=== PATIENT | male | born 1960 | race Caucasian/White ===

== ENCOUNTER → 2018-03-14 13:26 | Outpatient (CLI) | payer MEDICARE, SELFPAY ==
[2018-03-14 13:44] LABS: Basophils # 0.1 K/mm3 (0-0.2); Basophils % 0.9 % (0.1-2.0); Eosinophils # 0.3 K/mm3 (0.0-0.4); Eosinophils % 3.5 % (0.1-12.0); Hematocrit 48.6 % (42.0-52.0); Lymphocytes # 2.3 K/mm3 (0.7-4.5); Lymphocytes % 24.3 % (10-50); Mean Corpuscular HGB Conc 32.9 g/dL (31.8-35.4); Mean Corpuscular Hemoglobin 31.8 pg (27.0-31.2); Mean Corpuscular Volume 96.8 fl (80-94); Mean Platelet Volume 8.9 fl (7.4-10.4); Monocytes # 0.6 K/mm3 (0.1-1.0); Monocytes % 5.9 % (1.7-9.3); Neutrophils # 6.2 K/mm3 (1.8-7.8); Neutrophils % 65.5 % (37.0-80.0); Platelet Count 237 K/mm3 (142-424); Red Blood Count 5.02 M/mm3 (4.60-6.20); Red Cell Distribution Width 13.6 % (11.5-17.5); White Blood Count 9.4 K/mm3 (4.8-10.8)
[2018-03-14 14:53] LABS: Alanine Aminotransferase 25 U/L (12-78); Albumin Level 3.7 gm/dL (3.4-5.0); Albumin/Globulin Ratio 0.9 (1.1-1.8); Alkaline Phosphatase 133 U/L (46-116); Anion Gap 13.3 mEq/L (5-15); Aspartate Amino Transferase 9 U/L (15-37); Bilirubin,Total 0.4 mg/dL (0.2-1.0); Blood Urea Nitrogen 15 mg/dL (7-18); Calcium 8.9 mg/dL (8.5-10.1); Carbon Dioxide 27 mmol/L (21.0-32.0); Chloride 102 mmol/L (98-107); Chol/HDL Ratio 8.8 (1-3.5); Cholesterol 238 mg/dL (140-200); Creatinine,Serum 0.86 mg/dL (0.70-1.30); Estimated Glomerular Filt Rate 92 ml/min (>60); GFR (African American) 112 ML/MIN (>60); Globulin 3.9 gm/dl (1.3-3.2); Glucose 209 mg/dL (74-106); HDL Cholesterol 27 mg/dL (27-67); Potassium 4.3 mmoL/L (3.5-5.1); Sodium 138 mmol/L (136-145); T4 (Thyroxine) 6.2 ug/dl (4.7-13.3); Thyroid Stimulating Hormone 1.49 uIU/ml (0.358-3.740); Total Protein,Serum 7.6 gm/dL (6.4-8.2)
[2018-03-14 14:54] LABS: Amphetamine/Metha Screen,Urine Negative ng/mL (<1000); Barbiturates Screen,Urine Negative ng/mL (<200); Benzodiazepines Screen,Urine Negative ng/mL (<200); Cannabinoid Screen,Urine Negative ng/mL (<50); Cocaine Screen,Urine Negative ng/mL (<300); Methadone Screen,Urine Negative ng/mL (<300); Opiate Screen,Urine Negative ng/mL (<300); Phencyclidine Screen,Urine Negative ng/mL (<25)
[2018-03-14 14:55] LABS: Triglycerides 482 mg/dL (30-200)
[2018-03-15 16:16] LABS: Vitamin B12 464 pg/mL (232-1245); Vitamin D 25 Hydroxy 15.3 ng/mL (30.0-100.0)
[2018-03-15 16:17] LABS: Folate 13.3 ng/mL (>3.0); PSA, Free 0.13 ng/mL; Prostate Specific Ag 0.4 ng/mL (0.0-4.0)
== END ==
PROVIDERS: Visit Provider Nurse Practitioner Family
DX: M54.16 Radiculopathy, lumbar region (principal); I10 Essential (primary) hypertension; Z76.89 Persons encountering health services in other specified circumstances; M25.50 Pain in unspecified joint
CPT/HCPCS: 80053; 80061; 80305; 82607; 82652; 82746; 84153; 84154; 84436; 84443; 85025

== ENCOUNTER → 2018-03-25 12:49 | Outpatient (CLI) | payer MEDICARE, SELFPAY | PROVIDERS: PCP Emergency Medicine; Visit Provider Nurse Practitioner Family | DX: M54.9 Dorsalgia, unspecified (principal); M54.5 Low back pain; M54.2 Cervicalgia ==

== ENCOUNTER → 2018-06-18 17:58 | Outpatient (CLI) | payer MEDICARE, SELFPAY ==
[2018-06-18 19:19] LABS: Amphetamine/Metha Screen,Urine Negative ng/mL (<1000); Barbiturates Screen,Urine Negative ng/mL (<200); Benzodiazepines Screen,Urine Negative ng/mL (<200); Cannabinoid Screen,Urine Negative ng/mL (<50); Cocaine Screen,Urine Negative ng/mL (<300); Methadone Screen,Urine Negative ng/mL (<300); Opiate Screen,Urine Negative ng/mL (<300); Phencyclidine Screen,Urine Negative ng/mL (<25)
[2018-06-23 18:24] LABS: Gabapentin,Urine 282.5 ug/mL (.)
== END ==
PROVIDERS: Visit Provider Nurse Practitioner Family
DX: M54.16 Radiculopathy, lumbar region (principal)
CPT/HCPCS: 80305; 80307

== ENCOUNTER → 2018-06-19 14:16 | Outpatient (CLI) | payer MEDICARE, SELFPAY ==
--- NOTE | 2018-06-19 14:27 | XR_ITS ---
EXAM: XR lumbar spine min 4V HISTORY: Low back pain, old fracture ITS.REASON: pain ORDERING PHYSICIAN: Candido Van MD PATIENT AGE: 57 years COMPARISON: None FINDINGS: There is normal alignment. Anterior bridging osteophytes are present from T10 to L1. There is 40% anterior wedge compression changes at L1 which appears old. Degenerative disc disease is present at L5-S1 with endplate osteophytes and loss of disc space. Facet arthritic changes are noted at L5-S1. No acute fracture or dislocation evident. No lytic or blastic change. Left-sided osteophyte is present at L3-L4 IMPRESSION: Lumbar spondylosis with osteophytosis and degenerative disc disease at L5-S1 Old compression fracture of L1 with mild kyphosis
--- NOTE | 2018-06-19 14:27 | XR_ITS ---
EXAM: XR cervical spine 2V HISTORY: ITS.REASON: pain ORDERING PHYSICIAN: Candido Van MD PATIENT AGE: 57 years COMPARISON: None FINDINGS: There is normal alignment. There are prominent anterior bridging osteophytes at C3 C4 C4 C5 C5 C6 and C6-C7. There is slight reversal of lordosis at C5-C6. No fracture or dislocation. No lytic or blastic change. Carotid calcifications noted on the right. IMPRESSION: No acute finding. Cervical spondylosis with prominent anterior bridging osteophytes consistent with DISH of the cervical spine
--- NOTE | 2018-06-19 14:27 | XR_ITS ---
EXAM: XR thoracic spine 3V HISTORY: Back pain ITS.REASON: pain Comparison: None FINDINGS: There is mild thoracic curvature convex right. Prominent bridging osteophytes are present at T6 , T7, and T8 with marginal osteophytes along the right and left aspect at T8-T9 and T10. No acute fracture or dislocation. No lytic changes evident. IMPRESSION: Thoracic spondylosis with prominent marginal osteophytes and degenerative disc disease, no acute finding
[2018-06-19 17:05] LABS: Erythrocyte Sedimentation Rate 19 mm/hr (0-20)
[2018-06-19 17:14] LABS: C-Reactive Protein 0.4 mg/L (0.0-0.9)
[2018-06-21 09:01] LABS: RA Latex Turbid. 10.7 IU/mL (0.0-13.9)
[2018-06-21 12:24] LABS: Anti-Centromere B Antibodies <0.2 AI (0.0-0.9); Anti-Jo-1 <0.2 AI (0.0-0.9); Anti-Smith Antibody <0.2 AI (0.0-0.9); Antichromatin Antibodies <0.2 AI (0.0-0.9); Antiscleroderma-70 Antibodies <0.2 AI (0.0-0.9); RNP Antibodies 0.3 AI (0.0-0.9); Sjogren's Anti-SS-A <0.2 AI (0.0-0.9); Sjogren's Anti-SS-B <0.2 AI (0.0-0.9)
[2018-06-21 19:57] LABS: Anti-DNA (DS) Ab Qn <1 IU/mL (0-9)
[2018-06-22 08:31] LABS: PTT-LA 37.3 sec (0.0-51.9); dRVVT 63.6 sec (0.0-47.0); dRVVT Mix 45.9 sec (0.0-47.0)
[2018-06-23 18:25] LABS: Lupus Reflex Interpretation Comment: (.)
== END ==
PROVIDERS: Nurse Practitioner Family; PCP Emergency Medicine; Visit Provider Emergency Medicine
DX: M54.9 Dorsalgia, unspecified (principal); M54.2 Cervicalgia; M54.5 Low back pain; M25.50 Pain in unspecified joint; R73.9 Hyperglycemia, unspecified
CPT/HCPCS: 36415; 72040; 72072; 72110; 83036; 85613; 85651; 86140; 86225; 86235; 86431

== ENCOUNTER → 2018-07-08 09:14 | Outpatient (POV) | payer MEDICARE, SELFPAY ==
[2018-07-08 09:25] VITALS: BP 188/98; PULSE 66; RESP 18; O2SAT 98
--- NOTE | 2018-07-09 07:55 | [facility].PMCON ---
Assessment and Plan (1) Lumbar spondylosis Current visit: No Status: Chronic Category: Medical Code(s): M47.816 - Spondylosis without myelopathy or radiculopathy, lumbar region (2) Degenerative disc disease, lumbar Current visit: No Status: Chronic Category: Medical Code(s): M51.36 - Other intervertebral disc degeneration, lumbar region (3) Cervical spondylosis Current visit: No Status: Chronic Qualifiers: Category: Medical Code(s): M47.812 - Spondylosis without myelopathy or radiculopathy, cervical region (4) Lumbar radiculopathy Current visit: No Status: Acute Category: Medical Code(s): M54.16 - Radiculopathy, lumbar region (5) Low back pain Current visit: No Status: Chronic Qualifiers: Category: Medical Code(s): M54.5 - Low back pain (6) Peripheral neuropathy Current visit: No Status: Chronic Category: Medical Code(s): G62.9 - Polyneuropathy, unspecified - Assessment and plan all Dx Assessment and Plan for all problems:: We will give the patient information on intrathecal therapy along with neuro stimulation to see if this is something that would be beneficial for him or if he would like to pursue. Patient is going to contact our office if he would like to move forward with this. Dr. Villa has reviewed this note and agrees with this plan of care. This note was dictated using voice recognition software and may contain errors or omissions HPI - Data of Consult Consult date: 07/08/18 Requesting Physician: Zenaida Simpson APRN Primary Care Provider: Candido Van MD - Consult Narrative Reason for consult: Back pain History of present illness: Mr. Santana is a 57 year old male who presents today for discussion in regards to his chronic back pain. Patient states that he has pain all over due to arthritis. He says all activity increases pain while nothing really decreases his pain. Patient does have numbness and tingling in his feet. Patient has tried chiropractic therapy along with massage therapy and physical therapy. Patient is also utilized acupuncture. Patient has had epidural and trigger point injections with some relief. Patient rates his pain today a 5 out of 10. Patient wants to know what he can do for long-term treatment of his pain. He is currently not on any narcotic medications but he is tried and failed multiple types. He states that this is starting to affect his daily activity. CC: Zenaida Simpson APRN [facility] History I have reviewed the patient's past medical history: Yes Medical History: Reports:: Anxiety, Depression, Gastroesophageal Reflux Disease(GERD), Hyperlipidemia, Hypertension Denies:: Diabetes Mellitus Type 1, Diabetes Mellitus Type 2, Internal Pacemaker, Pulmonary Embolism, Seizures, Transient Ischemic Attacks (TIA) Other Medical History: Reports: Arthritis Other Surgeries: Yes: Appendectomy, Cardiac Catheterization, Cardiac Surgery, Coronary Stent, Other. No: Pacemaker Amputation: No Fractures: No - *Social History Smoking Status: Current every day smoker Tobacco Type: cigarettes # Packs/Day (cigarettes): 1 Alcohol Intake: never Substance Use Type: denies use *Occupational Status:: disabled Housing: house Household Members: other *Travel in the last 8 weeks: None - Psychiatric History Expresses thoughts of harming self/others: None Suicide Plan Description: No Plan Pschychiatric History:: Reports:: Anxiety, Depression Family Hx:: Hypertension, Heart Attack Review of Systems - Review of Systems ROS General: no recent weight change, no fever, no sleep disturbances Respiratory: no cough, no shortness of air, no recurring pulmonary infections Cardiovascular/Peripheral Vascular: No chest pain, No palpitations, no edema, no shortness of breath. Gastrointestinal: no incontinence, normal bowel movements reported Genitourinary: no incontinence Musculoskeletal: Back pain, neck pain, shoulder pain Psy
--- NOTE | 2018-07-09 07:59 | P.CONS_ITS ---
Assessment and Plan (1) Lumbar spondylosis Current visit: No Status: Chronic Category: Medical Code(s): M47.816 - Spondylosis without myelopathy or radiculopathy, lumbar region (2) Degenerative disc disease, lumbar Current visit: No Status: Chronic Category: Medical Code(s): M51.36 - Other intervertebral disc degeneration, lumbar region (3) Cervical spondylosis Current visit: No Status: Chronic Qualifiers: Category: Medical Code(s): M47.812 - Spondylosis without myelopathy or radiculopathy, cervical region (4) Lumbar radiculopathy Current visit: No Status: Acute Category: Medical Code(s): M54.16 - Radiculopathy, lumbar region (5) Low back pain Current visit: No Status: Chronic Qualifiers: Category: Medical Code(s): M54.5 - Low back pain (6) Peripheral neuropathy Current visit: No Status: Chronic Category: Medical Code(s): G62.9 - Polyneuropathy, unspecified - Assessment and plan all Dx Assessment and Plan for all problems:: We will give the patient information on intrathecal therapy along with neuro stimulation to see if this is something that would be beneficial for him or if he would like to pursue. Patient is going to contact our office if he would like to move forward with this. Dr. Villa has reviewed this note and agrees with this plan of care. This note was dictated using voice recognition software and may contain errors or omissions HPI - Data of Consult Consult date: 07/08/18 Requesting Physician: Zenaida Simpson APRN Primary Care Provider: Candido Van MD - Consult Narrative Reason for consult: Back pain History of present illness: Mr. Santana is a 57 year old male who presents today for discussion in regards to his chronic back pain. Patient states that he has pain all over due to arthritis. He says all activity increases pain while nothing really decreases his pain. Patient does have numbness and tingling in his feet. Patient has tried chiropractic therapy along with massage therapy and physical therapy. Patient is also utilized acupuncture. Patient has had epidural and trigger point injections with some relief. Patient rates his pain today a 5 out of 10. Patient wants to know what he can do for long-term treatment of his pain. He is currently not on any narcotic medications but he is tried and failed multiple types. He states that this is starting to affect his daily activity. CC: Zenaida Simpson APRN [facility] History I have reviewed the patient's past medical history: Yes Medical History: Reports:: Anxiety, Depression, Gastroesophageal Reflux Disease(GERD), Hyperlipidemia, Hypertension Denies:: Diabetes Mellitus Type 1, Diabetes Mellitus Type 2, Internal Pacemaker, Pulmonary Embolism, Seizures, Transient Ischemic Attacks (TIA) Other Medical History: Reports: Arthritis Other Surgeries: Yes: Appendectomy, Cardiac Catheterization, Cardiac Surgery, Coronary Stent, Other. No: Pacemaker Amputation: No Fractures: No - *Social History Smoking Status: Current every day smoker Tobacco Type: cigarettes # Packs/Day (cigarettes): 1 Alcohol Intake: never Substance Use Type: denies use *Occupational Status:: disabled Housing: house Household Members: other *Travel in the last 8 weeks: None - Psychiatric History Expresses thoughts of harming self/others: None Suicide Plan Description: No Plan Pschychiatric History:: Reports:: Anxiety, Depression Family Hx:: Hypertension, Heart Attack Review of Systems - Review of Systems ROS General:
== END ==
PROVIDERS: PCP Emergency Medicine; Visit Provider Clinical Nurse Specialist Family Health
DX: M47.896 Other spondylosis, lumbar region (principal); M51.16 Intervertebral disc disorders with radiculopathy, lumbar region; M47.892 Other spondylosis, cervical region; G62.9 Polyneuropathy, unspecified
CPT/HCPCS: 99202

== ENCOUNTER → 2018-09-17 17:43 | Outpatient (CLI) | payer MEDICARE, SELFPAY ==
[2018-09-17 19:13] LABS: Anion Gap 12.2 mEq/L (5-15); Blood Urea Nitrogen 9 mg/dL (7-18); Calcium 8.6 mg/dL (8.5-10.1); Carbon Dioxide 29 mmol/L (21.0-32.0); Chloride 104 mmol/L (98-107); Creatinine,Serum 0.71 mg/dL (0.70-1.30); Estimated Glomerular Filt Rate 115 ml/min (>60); GFR (African American) 139 ML/MIN (>60); Glucose 268 mg/dL (74-106); Potassium 4.2 mmoL/L (3.5-5.1); Sodium 141 mmol/L (136-145)
[2018-09-17 19:22] LABS: Hemoglobin A1C 7.6 % (0.0-7.0)
== END ==
PROVIDERS: Visit Provider Emergency Medicine
DX: E11.9 Type 2 diabetes mellitus without complications (principal)
CPT/HCPCS: 80048; 83036

== ENCOUNTER → 2018-10-14 13:28 | Outpatient (CLI) | payer MEDICARE, SELFPAY ==
[2018-10-14 14:28] LABS: Alanine Aminotransferase 25 U/L (12-78); Albumin Level 3.5 gm/dL (3.4-5.0); Alkaline Phosphatase 137 U/L (46-116); Bilirubin,Direct 0.1 mg/dL (0.0-0.2); Bilirubin,Indirect 0.3 mg/dL (0.0-0.9); Bilirubin,Total 0.4 mg/dL (0.2-1.0); Total Protein,Serum 7.5 gm/dL (6.4-8.2)
[2018-10-14 14:33] LABS: Aspartate Amino Transferase 9 U/L (15-37)
[2018-10-16 06:20] LABS: Hep A Ab, IgM Negative (Negative); Hepatitis B Core Antibody IgM Negative (Negative); Hepatitis B Surface Antigen Negative (Negative)
[2018-10-17 08:16] LABS: Hepatitis C Antibody >11.0 s/co ratio (0.0-0.9)
== END ==
PROVIDERS: Visit Provider Emergency Medicine
DX: R53.83 Other fatigue (principal); E11.9 Type 2 diabetes mellitus without complications; Z79.84 Long term (current) use of oral hypoglycemic drugs; R74.8 Abnormal levels of other serum enzymes
CPT/HCPCS: 80074; 80076

== ENCOUNTER → 2018-10-22 15:12 | Outpatient (CLI) | payer MEDICARE, SELFPAY | PROVIDERS: Visit Provider Emergency Medicine | DX: R76.8 Other specified abnormal immunological findings in serum (principal) | CPT/HCPCS: 36415; 87522 ==